=== PATIENT | female | born 1965 | race Caucasian/White ===

== ENCOUNTER 2016-09-22 08:16 | Day surgery (SDC) | payer BC ==
--- NOTE | ~2016-09-22 | EGD ---
EGD REPORT [facility] [address] [address] NAME: LACHELLE BRYANT : 63 [place]US : [place] [facility] [place] [id number] AGE: 51 ADM/REG DATE : 09/22/16 MR#: [id number] REPORT SERV DATE: 09/22/16 DICTATED BY: ISSAC CURRIE DATE: 09/22/16 REPORT STATUS : Draft [facility]ANS[facility]: [facility] DATE: 09/22/16 Endoscopy Center Patient Name: Lachelle Bryant Date of : 1965 Attending MD: ISSAC CURRIE, Procedure Date No Time: 09/22/2016 Procedure: Upper EUS Indications: Acute recurrent pancreatitis Referring MD: KELECHI EL Medicines: Monitored Anesthesia Care Complications: No immediate complications. Estimated blood loss: None. Procedure: Pre-Anesthesia Assessment: - ASA Grade Assessment: III - A patient with severe systemic disease. After obtaining informed consent, the endoscope was passed under direct vision. Throughout the procedure, the patient's blood pressure, pulse, and oxygen saturations were monitored continuously. The Endoscope was introduced through the mouth, and advanced to the second part of duodenum. The GIF [id number] was introduced through the mouth, and advanced to the second part of duodenum. Findings: Endoscopic Finding : The examined esophagus was endoscopically normal. Patchy mild inflammation characterized by erythema was found in the entire examined stomach. Biopsies were taken with a cold forceps for histology. Verification of patient identification for the specimen was done. Estimated blood loss was minimal. The examined duodenum was normal. Biopsies were taken with a cold forceps for histology. Verification of patient identification for the specimen was done. Estimated blood loss was minimal. The cardia and gastric fundus were normal on retroflexion. Endosonographic Finding : There was no sign of significant endosonographic abnormality in the entire pancreas. The pancreas was well visualized, no pathologic lymphadenopathy, no masses, no calcifications, the pancreatic duct was well visualized from ampulla to tail, the pancreatic duct was regular in contour. Endosonographic imaging of the pancreas showed no chronic pancreatitis, no cyst/pseudocyst, no mass, no pancreatic duct changes and no stones. There was no sign of significant endosonographic abnormality in the common bile duct. No lymphadenopathy seen. EGD REPORT [address] [address] NAME: LACHELLE BRYANT : [birth year] [place]US : [place] [facility] [place]#: [id number] AGE: 51 ADM/REG DATE : 09/22/16 MR#: [id number] REPORT SERV DATE: 09/22/16 DICTATED BY: ISSAC CURRIE DATE: 09/22/16 REPORT STATUS : Draft TRANSCRIBED BY: [employer] DATE: 09/22/16 There was no sign of significant endosonographic abnormality in the examined duodenum. Endosonographic images of the stomach were unremarkable. There was no sign of significant endosonographic abnormality in the esophagus. Impression: - Normal esophagus. - Gastritis. Biopsied. - Normal examined duodenum. Biopsied. - There was no sign of significant pathology in the entire pancreas. - There was no sign of significant pathology in the common bile duct. - There was no sign of significant pathology in the examined duodenum. - Endosonographic images of the stomach were unremarkable. - There was no sign of significant pathology in the esophagus. Recommendation: - Return to previous diet. - Continue present medications. - Await path results. - Return to referring physician. Procedure Code(s): --- Professional --- 52019, Esophagogastroduodenoscopy, flexible, transoral; with endoscopic ultrasound examination, including the esophagus, stomach, and either the duodenum or a surgically altered stomach where the jejunum is examined distal to the anastomosis Diagnosis Code(s): --- Professional --- K29.70, Gastritis, unspecified, without bleeding K85.9, Acute pancreatitis, unspecified CPT copyright 2013 [employer]. All rights reserved. The codes documented in this report are preliminary and upon digital printer operator review may be revised to meet current compliance requirements. ISSAC CURRIE, 09/22/2016 10:49 AM Number of Addenda: 0 EGD REPORT [facility] [address] [facility] [place] [address] NAME: LACHELLE BRYANT : 63 [place]US : [place] [facility] [place] [id number] AGE: 51 ADM/REG DATE : 09/22/16 MR#: [id number] REPORT SERV DATE: 09/22/16 DICTATED BY: ISSAC CURRIE DATE: 09/22/16 REPORT STATUS : Draft TRANSCRIBED BY: [employer] DATE: 09/22/16 Note Initiated On: 09/22/2016 10:18 AM [address] [place] [address]
[~2016-09-22 08:16] MED LIST: ADVAIR100 INH; ALLEGRA OTC PO; B12250T PO; CLARIT10 PO; FLONASE NAS; LIQUID TEARS OPH; MAXALT5 MG PO; NORCO1 TA1 PO; PREV30 PO; PRILOSEC OTC20 MG PO; PROAIR HFA INH; VISINE-A EYE AL15 ML OPH; VIVELLE-DOT0.1 MG TOP; ZITH250 PO; [UNRECOGNIZED DRUG - OTHER] PO
[2016-09-22 09:46] LABS: BUN (BLOOD UREA NITROGEN) 11 MG/DL (6-23); CALCIUM, SERUM 9.5 MG/DL (8.5-10.4); CHLORIDE, SERUM 111 MMOL/L (96-112); CO2 (CARBON DIOXIDE) 27 MMOL/L (24-34); CREATININE 0.85 MG/DL (0.55-1.02); GFR AFRICAN AMERICAN 91 ML/MIN (>=60); GFR NON AFRICAN AMERICAN 79 ML/MIN (>=60); POTASSIUM, SERUM 4.3 MMOL/L (3.5-5.3); SODIUM, SERUM 145 MMOL/L (135-148)
[2016-09-22 09:47] LABS: GLUCOSE, SERUM 96 MG/DL (60-99)
== END 2016-09-22 23:59 | disposition home or self-care (01) ==
LOC: DMU 08:16
PROVIDERS: Anesthesiology; Internal Medicine Gastroenterology
PROC: 0DB98ZX Excision of Duodenum, Via Natural or Artificial Opening Endoscopic, Diagnostic (ICD-10-PCS; 2016-09-22)
PROC: 0DB68ZX Excision of Stomach, Via Natural or Artificial Opening Endoscopic, Diagnostic (ICD-10-PCS; 2016-09-22)
PROC: 0DJ08ZZ Inspection of Upper Intestinal Tract, Via Natural or Artificial Opening Endoscopic (ICD-10-PCS; principal; 2016-09-22 11:00)
DX: K29.50 Unspecified chronic gastritis without bleeding (principal); K31.7 Polyp of stomach and duodenum; K85.90 Acute pancreatitis without necrosis or infection, unspecified; J45.909 Unspecified asthma, uncomplicated; K21.9 Gastro-esophageal reflux disease without esophagitis; Z88.2 Allergy status to sulfonamides; Z88.1 Allergy status to other antibiotic agents; Z90.49 Acquired absence of other specified parts of digestive tract; Z90.710 Acquired absence of both cervix and uterus; Z90.89 Acquired absence of other organs; Z98.890 Other specified postprocedural states
CPT/HCPCS: 80048; 88305; 93005; C1725; J3010